=== PATIENT | female | born 1995 | race Caucasian/White ===

== ENCOUNTER → 2016-07-30 | Outpatient (CLI) | payer OTHER ==
[~2016-07-30] MED LIST: ALBU1AER9 INH; CALC600T9 PO; ETOD400T PO; JNLF153028 PO; LEVE1TAB57 PO; MULT-506 PO; NAPR1TAB9 PO
--- NOTE | 2016-07-30 10:27 | DIAGNOSTIC IMAGING REPORT ---
LUMBAR SPINE 5 VIEWS HISTORY: Back pain. Radiculopathy. RIGHT LUMBAR RADICULOPATHY COMPARISON: None. FINDINGS: There is no fracture. Mild S-shaped scoliosis. Disc spaces are preserved. IMPRESSION: 1. Mild S-shaped scoliosis. 2. Otherwise negative study Electronically signed by: Mayo Vega M.D. 07/30/2016 10:26 AM Dictated Date/Time: 07/30/2016 10:25 AM
== END | disposition home or self-care (01) ==
LOC: C.RDSM 09:42
PROVIDERS: ATTEND Internal Medicine
DX: M54.16 Radiculopathy, lumbar region (principal)

== ENCOUNTER → 2016-08-01 | Outpatient (CLI) | payer OTHER ==
--- NOTE | 2016-08-01 09:04 | DIAGNOSTIC IMAGING REPORT ---
MRI LUMBAR SPINE W/O CONTRAST CLINICAL HISTORY: Progressive low back pain TECHNIQUE: Sagittal and axial T1, T2 and STIR images were obtained. COMPARISON STUDY: 07/08/2014 OBSERVATIONS: The vertebral bodies and posterior elements appear intact. There is no abnormal bony signal present to suggest a marrow replacement process. L1-2: No disc protrusions or extrusions. No evidence of spinal canal or neural foraminal compromise. L2-3: No disc protrusions or extrusions. No evidence of spinal canal or neural foraminal compromise. L3-4: No disc protrusions or extrusions. No evidence of spinal canal or neural foraminal compromise. L4-5: The disc is desiccated. There is a tiny central disc protrusion. There is no significant thecal sac deformity. There is no spinal or foraminal stenosis. L5-S1: No disc protrusions or extrusions. No evidence of spinal canal or neural foraminal compromise. The conus medullaris and cauda equina appear normal. IMPRESSION: Disc desiccation and tiny central disc protrusion at the L4-5 level. No evidence of spinal or foraminal stenosis. The examination remains unchanged from June 2014 Electronically signed by: Rodrick Bergeron M.D. 08/01/2016 9:02 AM Dictated Date/Time: 08/01/2016 8:59 AM
== END | disposition home or self-care (01) ==
LOC: C.MRI 08:00
PROVIDERS: ATTEND Internal Medicine
DX: M54.16 Radiculopathy, lumbar region (principal)

== ENCOUNTER → 2016-09-12 | Outpatient (CLI) | payer OTHER ==
[2016-09-12 17:27] LABS: BASO % 1.1 %; BASO ABS # 0.09 K/uL (0-0.2); COMPLETE YES; EOS % 1.1 %; IG% 0.4 %; LYMPH ABS # 1.53 K/uL (1.2-3.4); MEAN CELL VOLUME 96.1 fL (80-100); MEAN CORPUSCULAR HEMOGLOBIN 31.4 pg (25-34); MEAN CORPUSCULAR HGB CONC 32.6 g/dl (32-36); MONO % 7.1 %; NEUT % 71.3 %; PLATELET COUNT 297 K/uL (130-400); RED BLOOD COUNT 4.37 M/uL (4.2-5.4); WHITE BLOOD COUNT 8.05 K/uL (4.8-10.8)
[2016-09-12 18:16] LABS: ALKALINE PHOSPHATASE 55 U/L (45-117); ALT/SGPT 44 U/L (12-78); AST/SGOT 42 U/L (15-37); BLOOD UREA NITROGEN 14 mg/dl (7-18); BUN/CREATININE RATIO 16.1 (10-20); CALCIUM 8.4 mg/dl (8.5-10.1); CARBON DIOXIDE 32 mmol/L (21-32); CHLORIDE 100 mmol/L (98-107); CREATININE 0.84 mg/dl (0.60-1.20); GLUCOSE 75 mg/dl (70-99); POTASSIUM 3.7 mmol/L (3.5-5.1); SODIUM 138 mmol/L (136-145)
[2016-09-12 18:17] LABS: ALB/GLOB RATIO 0.9 (0.9-2)
== END | disposition home or self-care (01) ==
LOC: C.LABBC 13:30
PROVIDERS: ATTEND Psychiatry & Neurology Neurology
DX: Z51.81 Encounter for therapeutic drug level monitoring (principal)

== ENCOUNTER → 2016-11-19 | Outpatient (CLI) | payer OTHER ==
--- NOTE | 2016-11-19 12:15 | DIAGNOSTIC IMAGING REPORT ---
LEFT FOOT MIN 3 VIEWS CLINICAL HISTORY: 21 years-old Female presenting with LEFT FOOT PAIN. TECHNIQUE: Frontal, oblique, and lateral views of the left foot were obtained. COMPARISON: Correlation made to plain radiographs of the right foot from 08/16/2015. FINDINGS: No acute fracture or malalignment. No radiopaque foreign body. No degenerative change. Regional soft tissues normal. IMPRESSION: No acute osseous injury of the left foot. Electronically signed by: Geoffrey Joseph M.D. 11/19/2016 12:14 PM Dictated Date/Time: 11/19/2016 12:13 PM
== END | disposition home or self-care (01) ==
LOC: C.RDSM 11:49
PROVIDERS: ATTEND Internal Medicine
DX: M79.672 Pain in left foot (principal)

== ENCOUNTER → 2017-01-17 | Outpatient (CLI) | payer OTHER ==
--- NOTE | 2017-01-17 20:18 | DIAGNOSTIC IMAGING REPORT ---
MRI OF THE LEFT TIBIA AND FIBULA WITHOUT CONTRAST CLINICAL HISTORY: Left calf pain. Evaluate for stress fracture. Runner. COMPARISON STUDY: Left knee radiographs November 04, 2015. TECHNIQUE: Utilizing 1.5 Oanh magnet and dedicated coil, multiplanar, multi echo imaging of the left tibia and fibula was performed without intravenous contrast. FINDINGS: Note is made of mild periosteal edema along the medial mid shaft of the left tibia at site of marker which indicates maximal pain. There is also mild marrow edema within the left tibia at this level. No fracture line is identified. No intracortical signal abnormality is present. No abnormality of the left fibula is identified. No muscular abnormality within left lower leg is noted. There is no fluid collection. IMPRESSION: Mild periosteal and marrow edema within the mid shaft of the left tibia at site of maximal pain. This reflects grade 2 tibial stress syndrome/reaction. No fracture line identified. Electronically signed by: Isrrael Cai M.D. 01/17/2017 8:17 PM Dictated Date/Time: 01/17/2017 8:11 PM
== END | disposition home or self-care (01) ==
LOC: C.MRI 19:05
PROVIDERS: ATTEND Internal Medicine
DX: M79.662 Pain in left lower leg (principal); R93.7 Abnormal findings on diagnostic imaging of other parts of musculoskeletal system

== ENCOUNTER 2017-07-05 17:37 | Emergency (ER) | payer OTHER ==
[~2017-07-05] VITALS: Ht 158.8 cm; Wt 45.9 kg
[2017-07-05 17:48] VITALS: TEMP 36.5; Ht 158.8 cm; Wt 45.9 kg
[2017-07-05] MEDS ORDERED: SODIUM CHLORIDE 0.9% 1000ML 2,000 ML IV STA (18:16)
[2017-07-05] MEDS ORDERED: ONDANSETRON INJ 2 MG/ML 2 ML VIAL IV STA (18:16)
[2017-07-05] MEDS ORDERED: KETOROLAC TROMETHAMINE 30 MG/ML VIAL IV STA (18:16)
--- NOTE | 2017-07-05 18:27 | EMERGENCY ROOM VISIT NOTE ---
History Report prepared by Nnamdi: Kailyn Topete Under the Supervision of: Dr. Haroldo Ladd M.D. First contact with patient: 18:13 Chief Complaint: FLANK PAIN Stated Complaint: UTI, BACK/PELVIC PAIN History of Present Illness The patient is a 22 year old female who presents to the Emergency Room with complaints of left-sided pelvic pain beginning 1 week ago. She rates her pain at a 9/10. The patient reports that the pain also wraps around to her lower abdomen. The patient reports feeling dizzy, nauseous, and fatigued, and states that she has also noticed that she has had swollen ankles and swollen wrists. She reports that last week she was at the doctor and was having pain with urination and was treated for a UTI. She reports that she was placed on Bactrim and that she finished it yesterday. Per mother, the patient has a childhood history of UTIs. 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 The patient also reports taking Cingular for allergies. She reports that her last menstrual cycle was in the Fall and that is she is irregular and is on oral contraceptives. The patient states that she does not think that her pain is due to her menstrual cycle. She denies any vaginal bleeding or itching. She denies a history of ovarian cysts. The patient denies concerns for STI's and denies any drug use. Source of History: patient Onset: 1 week ago Position: pelvis (left-sided) Symptom Intensity: rated at a 9/10 Quality: other (pain ) Associated Symptoms: + nausea, + abdominal pain (lower), + fatigue, + weakness (dizzy) Note: additional symptoms: swollen ankles and wrists denies: vaginal bleeding and itching Review of Systems See HPI for pertinent positives and negatives. A total of ten systems were reviewed and were otherwise negative. Past Medical & Surgical Medical Problems: (1) Acute exacerbation of chronic low back pain (2) Acute exacerbation of chronic low back pain (3) Asthma (4) Epilepsy (5) Epilepsy (6) Intractable back pain (7) Intractable back pain (8) Migraine (9) sacral stress fracture Family History Autoimmune disorder Social History Smoking Status: Never Smoker Marital Status: single Housing Status: lives with roommate Occupation Status: [employer] student Current/Historical Medications Scheduled Calcium Carbonate-Vitamin D (Calcium + D), 600 MG PO DINNER Ethinyl Estradiol/Norethindr (), 1 TAB PO HS Levetiracetam (Keppra), 1,000 MG PO QAM Levetiracetam (Keppra), 1,500 MG PO HS Multivitamin (Multivitamin), 1 TAB PO DINNER Scheduled PRN Albuterol (Proair Hfa), 1 PUFF INH DAILY PRN for SOB/Wheezing Etodolac (Etodolac), 1 TAB PO BID PRN for Migraine Naproxen (Aleve), 440 MG PO DAILY PRN for Pain Allergies Coded Allergies: Iodine (Verified Allergy, Severe, ANAPHYLAXIS, 02/29/16) Lamotrigine (Verified Allergy, Unknown, RASH, 02/29/16) Latex1 -Allergic Contact Dermititis (Verified Allergy, Unknown, HIVES, ) Phenytoin (Verified Allergy, Unknown, RASH, 02/29/16) Pregabalin (Verified Allergy, Unknown, ANAPHYLAXIS, 02/29/16) Valproic Acid (Verified Allergy, Unknown, RASH, 02/29/16) Gabapentin (Verified Adverse Reaction, Unknown, headaches, 02/29/16) Physical Exam Vital Signs Date Time Temp Pulse Resp B/P (MAP) Pulse Ox O2 Delivery O2 Flow Rate FiO2 07/05/17 22:05 51 07/05/17 21:21 51 18 96/70 100 Room Air 07/05/17 18:42 49 07/05/17 17:48 36.5 53 16 120/80 97 Room Air Physical Exam GENERAL: Awake, alert, fatigued and uncomfortable appearing, in no distress HENT: Normocephalic, atraumatic. Dry mucous membranes, otherwise oropharynx unremarkable. EYES: Normal conjunctiva. Sclera non-icteric. NECK: Supple. No nuchal rigidity. FROM. No JVD. RESPIRATORY: Clear to auscultation. CARDIAC: Regular rate, normal rhythm. Extremities warm and well perfused. Pulses equal. ABDOMEN: Soft, non-distended. Mild suprapubic tenderness. No rebound or guarding. No masses. RECTAL: Deferred. MUSCULOSKELETAL: Chest examination reveals no tenderness. The back is symmetrical on inspection without obvious abnormality. Mild left CVA and left flank tenderness. No joint edema. LOWER EXTREMITIES: Calves are equal size bilaterally and non-tender. No edema. No discoloration. NEURO: Normal sensorium. No sensory or motor deficits noted. SKIN: No rash or jaundice noted. EXTERNAL GENITAL: No discharge. No lesions. Medical Decision & Procedures ER Provider Diagnostic Interpretation: Radiology results as stated below per my review and radiologist interpretation: CT ABD/PELVIS IV CONTRAST ONLY CLINICAL HISTORY: Left abdominal/flank pain. COMPARISON STUDY: None. TECHNIQUE: Following the IV administration of 92 mL of Optiray-320, CT scan of the abdomen and pelvis was performed from the lung bases to the proximal femurs. Images are reviewed in the axial, sagittal, and coronal planes. IV contrast was administered without complication. A dose lowering technique was utilized adhering to the principles of ALARA. CT DOSE: 257.65 mGy.cm FINDINGS: Lower chest: The heart is normal in size and configuration, without pericardial effusion. The lung bases and pleural spaces are clear. Liver: There is slight heterogeneous hepatic enhancement. No focal masses are visualized. Gallbladder: Unremarkable. Spleen: Normal in size and attenuation. Pancreas: Unremarkable. Adrenal glands: Unremarkable. Kidneys: There is symmetric renal cortical enhancement. The kidneys are normal in size without hydronephrosis. Bowel: Evaluation the bowel is limited given the possibility of intra-abdominal fat and the lack of oral contrast. There are no transition zones to indicate bowel obstruction. There is no acute diverticulitis. There are no findings to indicate acute appendicitis. There is mild fecal retention. There is mild prominence the terminal ileum which contains a small amount of formed feces. Peritoneum: There is a small amount of free pelvic fluid. There is no free air. Vasculature: There is no evidence of abdominal aortic aneurysm. There are prominent pelvic and left gonadal veins. Adenopathy: None. Pelvic viscera: The bladder, and pelvic viscera are unremarkable. Skeletal structures: No destructive osseous lesions are seen. IMPRESSION: 1. No evidence of bowel obstruction. No evidence of free air 2. Mild fecal retention. Mildly prominent terminal ileum containing fluid and formed fecal material 3. No evidence of acute diverticulitis. No evidence of acute appendicitis 4. Free pelvic fluid, slightly greater than expected for physiologic free fluid 5. Prominent pelvic and left collateral veins 6. Slight heterogeneous hepatic enhancement without evidence of focal mass. Electronically signed by: Rodrick Bergeron M.D. 07/05/2017 7:41 PM Dictated Date/Time: 07/05/2017 7:33 PM EXAMINATION: PELVIC ULTRASOUND (transabdominal only) CLINICAL HISTORY: Left lower quadrant and flank pain COMPARISON STUDY: FINDINGS: The patient refused endovaginal scanning. The study was limited due to lack of optimal acoustic windows and extensive bowel gas. The uterus measured 6.2 x 2.6 x 3.4 cm.. The endometrial stripe measured 6 mm. The right ovary measured 24 x 13 x 18 mm. The left ovary measured 31 x 19 x 12 mm. There is no ultrasonographic evidence of ovarian torsion. It should be noted that ovarian torsion can be present with normal Doppler ultrasonographic findings. There is a small amount of free pelvic fluid. IMPRESSION: 1. Technically limited study. 2. No uterine or ovarian masses identified. 3. Small amount of free pelvic fluid. Electronically signed by: Rodrick Bergeron M.D. 07/05/2017 8:58 PM Dictated Date/Time: 07/05/2017 8:56 PM Laboratory Results 07/05/17 18:33 Red Blood Count 4.40, Mean Corpuscular Volume 90.7, Mean Corpuscular Hemoglobin 30.9, Mean Corpuscular Hemoglobin Concent 34.1, Mean Platelet Volume 9.4, Neutrophils (%) (Auto) 58.7, Lymphocytes (%) (Auto) 33.3, Monocytes (%) (Auto) 6.9, Eosinophils (%) (Auto) 0.4, Basophils (%) (Auto) 0.4, Neutrophils # (Auto) 4.16, Lymphocytes # (Auto) 2.36, Monocytes # (Auto) 0.49, Eosinophils # (Auto) 0.03, Basophils # (Auto) 0.03 07/05/17 18:33 Test 07/05/17 16:15 07/05/17 18:33 Urine Color YELLOW Urine Appearance CLEAR (CLEAR) Urine pH 7.5 (4.5-7.5) Urine Specific [place] 1.014 (1.000-1.030) Urine Protein NEG (NEG) Urine Glucose (UA) NEG (NEG) Urine Ketones NEG (NEG) Urine Occult Blood NEG (NEG) Urine Nitrite NEG (NEG) Urine Bilirubin NEG (NEG) Urine Urobilinogen NEG (NEG) Urine Leukocyte Esterase NEG (NEG) Urine Osmolality 323 mOms/kg (500-800) Urine Test NEG (NEG) White Blood Count 7.09 K/uL (4.8-10.8) Red Blood Count 4.40 M/uL (4.2-5.4) Hemoglobin 13.6 g/dL (12.0-16.0) Hematocrit 39.9 % (37-47) Mean Corpuscular Volume 90.7 fL (80-100) Mean Corpuscular Hemoglobin 30.9 pg (25-34) Mean Corpuscular Hemoglobin Concent 34.1 g/dl (32-36) Platelet Count 282 K/uL (130-400) Mean Platelet Volume 9.4 fL (7.4-10.4) Neutrophils (%) (Auto) 58.7 % Lymphocytes (%) (Auto) 33.3 % Monocytes (%) (Auto) 6.9 % Eosinophils (%) (Auto) 0.4 % Basophils (%) (Auto) 0.4 % Neutrophils # (Auto) 4.16 K/uL (1.4-6.5) Lymphocytes # (Auto) 2.36 K/uL (1.2-3.4) Monocytes # (Auto) 0.49 K/uL (0.11-0.59) Eosinophils # (Auto) 0.03 K/uL (0-0.5) Basophils # (Auto) 0.03 K/uL (0-0.2) RDW Standard Deviation 43.4 fL (36.4-46.3) RDW Coefficient of Variation 13.2 % (11.5-14.5) Immature Granulocyte % (Auto) 0.3 % Immature Granulocyte # (Auto) 0.02 K/uL (0.00-0.02) Anion Gap 8.0 mmol/L (3-11) Est Creatinine Clear Calc Drug Dose 68.0 ml/min Estimated GFR () 99.8 Estimated GFR (Non- 86.1 BUN/Creatinine Ratio 13.9 (10-20) Osmolality 272 mOsm/kg (280-300) Calcium Level 9.4 mg/dl (8.5-10.1) Total Bilirubin 0.4 mg/dl (0.2-1) Direct Bilirubin < 0.1 mg/dl (0-0.2) Aspartate Amino Transf (AST/SGOT) 72 U/L (15-37) Alanine Aminotransferase (ALT/SGPT) 52 U/L (12-78) Alkaline Phosphatase 53 U/L (45-117) Total Protein 7.0 gm/dl (6.4-8.2) Albumin 3.8 gm/dl (3.4-5.0) Lipase 131 U/L (73-393) Laboratory results reviewed by me Medications Administered Medications (Trade) Dose Ordered Sig/Jaida Route Start Time Stop Time Status Last Admin Dose Admin Sodium Chloride 2,000 ml @ 999 mls/hr Q2H1M STAT IV 07/05/17 18:16 07/05/17 20:16 DC 07/05/17 19:06 999 MLS/HR Ketorolac Tromethamine (Toradol Inj) 15 mg NOW STAT IV 07/05/17 18:16 07/05/17 18:22 DC 07/05/17 19:05 15 MG Ondansetron HCl (Zofran Inj) 4 mg NOW STAT IV 07/05/17 18:16 07/05/17 18:22 DC 07/05/17 19:06 4 MG ED Course 1813: The patient was evaluated in room A12B. A complete history and physical exam was performed. 2016: I checked on the patient and she is doing well. We will do an ultrasound because the CT did not show anything. 2146: I reevaluated the patient and she was doing well. Discussed results and discharge instructions: She verbalized understanding and agreement. The patient is ready for discharge. Medical Decision I reviewed the patient's past medical history, medications, and the nursing notes as described above. Differential diagnosis: Etiologies such as appendicitis, diverticulitis, PUD, biliary pathology, UTI, pancreatitis, obstruction, mesenteric ischemia, aortic pathology, infections, inflammatory bowel disease, renal colic, as well as others were entertained. The patient is a 22-year-old woman who presents to the emergency department with left flank pain per hpi. On arrival is fatigued and uncomfortable but no acute distress, afebrile stable vital signs. WBC within normal limits. Sodium 129. Labs otherwise unremarkable. CT the abdomen pelvis with question of mild fecal retention and some mildly increased free fluid however no other acute findings. Pelvic ultrasound also unremarkable although limited given the patient is not sexually active and TV US was not performed. External genital exam also unremarkable without any discharge or lesions. Unclear etiology to the patient's pain at this time. Since hyponatremia possibly contributing to some symptoms however appears that there may be a component of SIADH. However, patient feeling improved after IV fluid hydration. Of note, the mother reports a history of rheumatologic disease. 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 The patient was instructed to follow with her PCP as well as gynecology. Findings and plan for follow-up reviewed with patient and her mother at the bedside. Patient agreeable and d/c'd per discharge instructions. Medication Reconcilliation Current Medication List: was personally reviewed by me Blood Pressure Screening Patient's blood pressure: Normal blood pressure Impression Primary Impression: Left flank pain Additional Impression: Hyponatremia Scribe Attestation The scribe's documentation has been prepared under my direction and personally reviewed by me in its entirety. I confirm that the note above accurately reflects all work, treatment, procedures, and medical decision making performed by me. Departure Information Dispostion Home / Self-Care Referrals Isatu Ribeiro M.D. (PCP) Forms HOME CARE DOCUMENTATION FORM, IMPORTANT VISIT INFORMATION Patient Instructions ED Flank Pain Uncertain Cause, ED Hyponatremia, My [facility] Additional Instructions Please follow up with your primary care physician on Saturday for re-evaluation and to repeat your sodium level (129 today). You should also follow up with your pear picker regarding your burning with urination. The cause of your symptoms is unclear at this time. Otherwise, your exam, lab results, CT scan, and ultrasound did not show signs of an emergent condition at this time. Acetaminophen or ibuprofen for pain and fevers as needed. Return to the emergency department for worsening symptoms as described in the accompanying instructions. Problem Qualifiers
[2017-07-05 18:56] LABS: BASO % 0.4 %; BASO ABS # 0.03 K/uL (0-0.2); EOS % 0.4 %; EOS ABS # 0.03 K/uL (0-0.5); HEMATOCRIT 39.9 % (37-47); HEMOGLOBIN 13.6 g/dL (12.0-16.0); IG# 0.02 K/uL (0.00-0.02); LYMPH % 33.3 %; LYMPH ABS # 2.36 K/uL (1.2-3.4); MEAN CELL VOLUME 90.7 fL (80-100); MEAN CORPUSCULAR HEMOGLOBIN 30.9 pg (25-34); MEAN CORPUSCULAR HGB CONC 34.1 g/dl (32-36); MEAN PLATELET VOLUME 9.4 fL (7.4-10.4); MONO % 6.9 %; MONO ABS # 0.49 K/uL (0.11-0.59); NEUT % 58.7 %; NEUT ABS # 4.16 K/uL (1.4-6.5); PLATELET COUNT 282 K/uL (130-400); RED CELL DISTRIBUTION WIDTH CV 13.2 % (11.5-14.5); RED CELL DISTRIBUTION WIDTH SD 43.4 fL (36.4-46.3); WHITE BLOOD COUNT 7.09 K/uL (4.8-10.8)
[2017-07-05 19:11] LABS: ALBUMIN 3.8 gm/dl (3.4-5.0); ALT/SGPT 52 U/L (12-78); AST/SGOT 72 U/L (15-37); BLOOD UREA NITROGEN 13 mg/dl (7-18); CALCIUM 9.4 mg/dl (8.5-10.1); CARBON DIOXIDE 26 mmol/L (21-32); CREATININE 0.94 mg/dl (0.60-1.20); GLUCOSE 76 mg/dl (70-99); LIPASE 131 U/L (73-393); POTASSIUM 3.7 mmol/L (3.5-5.1); SODIUM 129 mmol/L (136-145)
[2017-07-05 19:13] LABS: ALKALINE PHOSPHATASE 53 U/L (45-117)
--- NOTE | 2017-07-05 19:42 | DIAGNOSTIC IMAGING REPORT ---
CT ABD/PELVIS IV CONTRAST ONLY CLINICAL HISTORY: Left abdominal/flank pain. COMPARISON STUDY: None. TECHNIQUE: Following the IV administration of 92 mL of Optiray-320, CT scan of the abdomen and pelvis was performed from the lung bases to the proximal femurs. Images are reviewed in the axial, sagittal, and coronal planes. IV contrast was administered without complication. A dose lowering technique was utilized adhering to the principles of ALARA. CT DOSE: 257.65 mGy.cm FINDINGS: Lower chest: The heart is normal in size and configuration, without pericardial effusion. The lung bases and pleural spaces are clear. Liver: There is slight heterogeneous hepatic enhancement. No focal masses are visualized. Gallbladder: Unremarkable. Spleen: Normal in size and attenuation. Pancreas: Unremarkable. Adrenal glands: Unremarkable. Kidneys: There is symmetric renal cortical enhancement. The kidneys are normal in size without hydronephrosis. Bowel: Evaluation the bowel is limited given the possibility of intra-abdominal fat and the lack of oral contrast. There are no transition zones to indicate bowel obstruction. There is no acute diverticulitis. There are no findings to indicate acute appendicitis. There is mild fecal retention. There is mild prominence the terminal ileum which contains a small amount of formed feces. Peritoneum: There is a small amount of free pelvic fluid. There is no free air. Vasculature: There is no evidence of abdominal aortic aneurysm. There are prominent pelvic and left gonadal veins. Adenopathy: None. Pelvic viscera: The bladder, and pelvic viscera are unremarkable. Skeletal structures: No destructive osseous lesions are seen. IMPRESSION: 1. No evidence of bowel obstruction. No evidence of free air 2. Mild fecal retention. Mildly prominent terminal ileum containing fluid and formed fecal material 3. No evidence of acute diverticulitis. No evidence of acute appendicitis 4. Free pelvic fluid, slightly greater than expected for physiologic free fluid 5. Prominent pelvic and left collateral veins 6. Slight heterogeneous hepatic enhancement without evidence of focal mass. Electronically signed by: Rodrick Bergeron M.D. 07/05/2017 7:41 PM Dictated Date/Time: 07/05/2017 7:33 PM
--- NOTE | 2017-07-05 21:00 | DIAGNOSTIC IMAGING REPORT ---
EXAMINATION: PELVIC ULTRASOUND (transabdominal only) CLINICAL HISTORY: Left lower quadrant and flank pain COMPARISON STUDY: FINDINGS: The patient refused endovaginal scanning. The study was limited due to lack of optimal acoustic windows and extensive bowel gas. The uterus measured 6.2 x 2.6 x 3.4 cm.. The endometrial stripe measured 6 mm. The right ovary measured 24 x 13 x 18 mm. The left ovary measured 31 x 19 x 12 mm. There is no ultrasonographic evidence of ovarian torsion. It should be noted that ovarian torsion can be present with normal Doppler ultrasonographic findings. There is a small amount of free pelvic fluid. IMPRESSION: 1. Technically limited study. 2. No uterine or ovarian masses identified. 3. Small amount of free pelvic fluid. Electronically signed by: Rodrick Bergeron M.D. 07/05/2017 8:58 PM Dictated Date/Time: 07/05/2017 8:56 PM
[2017-07-05 21:21] VITALS: BP 96/70; O2SAT 100
[2017-07-05 22:05] VITALS: PULSE 51
== END 2017-07-05 22:13 | disposition home or self-care (01) ==
LOC: C.EDB 17:40 → C.EDA 22:13
DX: R10.9 Unspecified abdominal pain (principal); E87.1 Hypo-osmolality and hyponatremia; J45.909 Unspecified asthma, uncomplicated; G40.909 Epilepsy, unspecified, not intractable, without status epilepticus; Z88.8 Allergy status to other drugs, medicaments and biological substances; Z91.040 Latex allergy status